=== PATIENT | female | born 1960 | race Caucasian/White ===

== ENCOUNTER 2019-03-20 08:00 | Inpatient (IN) | payer MEDICARE, MEDICAID ==
[~2019-03-20] VITALS: Ht 162.6 cm; Wt 109.1 kg
[~2019-03-20 08:00] MED LIST: ALBU8HFA IH; CLON-570 PO; DIVA500T52 PO; LISI-662 PO; OMEP20 PO; RISP3 PO; TIOT185 IH; [UNRECOGNIZED DRUG - CODE] TP
[2019-03-20] MEDS ORDERED: QUEtiapine FUMARATE 100 MG TABLET PO PRN (09:15)
[2019-03-20 09:25] VITALS: BP 150/100
[2019-03-20] MEDS ORDERED: PARO10TA89 PO (10:26)
[2019-03-20] MEDS ORDERED: METO50 PO ×2 (10:28→11:50)
[2019-03-20] MEDS ORDERED: LISI-662 PO (10:28)
[2019-03-20] MEDS: LORazepam 2 MG TABLET PO PRN ×2 (11:00→17:28)
[2019-03-20] MEDS ORDERED: METF-960 PO (11:38)
[2019-03-20] MEDS ORDERED: LORA1TAB3 PO (11:38)
[2019-03-20] MEDS ORDERED: DIVA500T52 PO (11:38)
[2019-03-20] MEDS ORDERED: RISP3 PO (11:38)
[2019-03-20] MEDS ORDERED: FENO160 PO (11:38)
[2019-03-20] MEDS ORDERED: VARE1TAB22 PO (11:38)
[2019-03-20] MEDS ORDERED: LEVO50 PO (11:38)
[2019-03-20] MEDS ORDERED: TUBERCULIN, PURIFIED PROTEIN DERIVATIVE 5 TU/0.1 ML SYRINGE ID ONE (12:15)
[2019-03-20] MEDS ORDERED: HydrOXYzine PAMOATE 50 MG CAPSULE PO PRN (12:15)
[2019-03-20] MEDS ORDERED: PROMETHAZINE HCL 25 MG TABLET PO PRN (12:15)
[2019-03-20] MEDS ORDERED: MAGNESIUM HYDROXIDE SUSPENSION 30 ML UDCUP PO PRN (12:15)
[2019-03-20] MEDS ORDERED: MAG HYDROX/AL HYDROX/SIMETH ES 30 ML SUSPENSION UDCUP PO PRN (12:15)
[2019-03-20] MEDS ORDERED: LOPERAMIDE HCL 2 MG CAPSULE PO PRN (12:15)
[2019-03-20] MEDS ORDERED: GLUCAGON,HUMAN RECOMBINANT 1 MG VIAL IM PRN (13:15)
[2019-03-20] MEDS ORDERED: CloNIDine HCL 0.1 MG TABLET PO PRN (13:15)
[2019-03-20] MEDS: LISINOPRIL 20 MG TABLET PO SCH (13:27)
[2019-03-20 13:30] VITALS: BP 194/84
[2019-03-20] MEDS: METOPROLOL SUCCINATE 50 MG ER TABLET PO SCH (15:46)
[2019-03-20] MEDS: RisperiDONE 1 MG TABLET PO PRN (16:25)
[2019-03-20] MEDS: THIAMINE HCL 100 MG TABLET PO SCH (16:25)
[2019-03-20] MEDS: NYSTATIN 15 GM POWDER BOTTLE TP SCH (16:25)
[2019-03-20 16:29] LABS: GLUCOMETER DEV NAME(LOC) BV3S.; GLUCOSE,POINT OF CARE 124 MG/DL (70-110)
[2019-03-20 17:24] VITALS: BP 141/61
[2019-03-20] MEDS: RisperiDONE 3 MG TABLET PO SCH (20:30)
[2019-03-20] MEDS: ZOLPIDEM TARTRATE 10 MG TABLET PO PRN (20:30)
[2019-03-20] MEDS ORDERED: DIVALPROEX SODIUM 500 MG ER TABLET PO SCH (21:00)
[2019-03-20] MEDS: INSULIN LISPRO 100 UNITS/ML SQ PRN (21:00)
[2019-03-21 01:24] VITALS: BP 140/98
[2019-03-21] MEDS: LORazepam 2 MG TABLET PO PRN ×3 (02:01→16:32)
[2019-03-21] MEDS: LEVOTHYROXINE SODIUM 50 MCG TABLET PO SCH (06:13)
[2019-03-21 06:14] LABS: GLUCOMETER DEV NAME(LOC) BV3S.; GLUCOSE,POINT OF CARE 157 MG/DL (70-110)
[2019-03-21 08:03] VITALS: BP 155/88
[2019-03-21] MEDS: METOPROLOL SUCCINATE 50 MG ER TABLET PO SCH (08:10)
[2019-03-21] MEDS: FENOFIBRATE 160 MG TABLET PO SCH (08:10)
[2019-03-21] MEDS: MULTIVITAMINS WITH MINERALS, THERAPEUTIC TABLET PO SCH (08:10)
[2019-03-21] MEDS: FOLIC ACID 1 MG TABLET PO SCH (08:10)
[2019-03-21] MEDS: LISINOPRIL 20 MG TABLET PO SCH (08:11)
[2019-03-21] MEDS: PARoxetine HCL 20 MG TABLET PO SCH (08:11)
[2019-03-21] MEDS: THIAMINE HCL 100 MG TABLET PO SCH ×2 (08:11→16:33)
[2019-03-21] MEDS: NYSTATIN 15 GM POWDER BOTTLE TP SCH ×2 (08:16→16:31)
[2019-03-21 08:35] LABS: HEMOGLOBIN A1C 7.6 % (4.5-6.2)
[2019-03-21 08:39] LABS: BASOPHILS % (AUTO) 0.7 % (0.0-2.0); EOSINOPHILS % (AUTO) 2.7 % (1.0-6.0); HEMATOCRIT 34.3 % (36-46); HEMOGLOBIN 11.9 g/dL (12.0-16.0); LYMPHOCYTES # (AUTO) 2.4 K/uL (1.0-4.8); MEAN CORPUSCULAR HEMOGLOBIN 30.5 pg (26.0-34.0); MEAN CORPUSCULAR HGB CONC 34.6 G/dL (31.0-37.0); MEAN CORPUSCULAR VOLUME 88 fL (80-100); MONOCYTES % (AUTO) 14.7 % (2.0-9.0); NEUTROPHILS % (AUTO) 44.9 % (40.0-70.0); PLATELET COUNT (AUTO) 276 K/uL (150-450); RED BLOOD CELL COUNT(AUTO) 3.89 MIL/uL (4.00-5.20); RED CELL DISTRIBUTION WIDTH 14.3 % (11.5-14.5)
[2019-03-21 08:40] LABS: ALANINE AMINOTRANSFERASE 25 U/L (12-78); ALBUMIN 3.2 g/dL (3.4-5.0); ALKALINE PHOSPHATASE 34 U/L (46-116); ANION GAP 7 mmol/L (8-16); ASPARTATE AMINOTRANSFERASE 18 U/L (15-37); BILIRUBIN,TOTAL 0.2 mg/dL (0.1-1.0); CARBON DIOXIDE 28 mmol/L (22-29); CHLORIDE 102 mmol/L (98-107); CHOLESTEROL 116 mg/dL (131-200); CREATININE 0.51 mg/dL (0.60-1.30); FREE T4 (FREE THYROXINE) 1.22 ng/dL (0.76-1.46); GLOMERULAR FILTR. RATE CALC > 60 mL/min (>60); GLUCOSE,RANDOM 149 mg/dL (70-110); HDL CHOLESTEROL 29 mg/dL (40-60); LDL CHOL (CALC.) 64 mg/dL (0-130); POTASSIUM 4.6 mmol/L (3.5-5.1); SODIUM SERUM 137 mmol/L (136-145); THYROID STIMULATING HORMONE 5.31 uIU/mL (0.36-3.74); TOTAL PROTEIN, SERUM 6.5 g/dL (6.4-8.2); TRIGLYCERIDES 117 mg/dL (15-150); UREA NITROGEN, BLOOD 13 mg/dL (7-18)
[2019-03-21 09:03] LABS: APPEARANCE,URINE TURBID (CLEAR); BILIRUBIN,URINE NEGATIVE (NEGATIVE); GLUCOSE, URINE (UA) 250 mg/dL (NEGATIVE); KETONES,URINE NEGATIVE (NEGATIVE); LEUKOCYTE ESTERASE ,URINE TRACE (NEGATIVE); NITRATE,URINE NEGATIVE (NEGATIVE); OCCULT BLOOD,URINE NEGATIVE (NEGATIVE); PH,URINE 6.5 (5.0-8.0); PROTEIN,URINE NEGATIVE (NEGATIVE)
[2019-03-21 09:07] LABS: AMPHET/METH SCREEN,URINE NEGATIVE (NEGATIVE); BARBITURATE SCREEN, URINE NEGATIVE (NEGATIVE); BENZODIAZEPINES SCREEN,URINE NEGATIVE (NEGATIVE); CANNABINOID SCREEN,URINE NEGATIVE (NEGATIVE); COCAINE SCREEN,URINE NEGATIVE (NEGATIVE); METHADONE SCREEN, URINE NEGATIVE (NEGATIVE); OPIATE SCREEN,URINE NEGATIVE (NEGATIVE)
[2019-03-21 09:09] LABS: PHENCYCLIDINE SCREEN,URINE NEGATIVE (NEGATIVE)
[2019-03-21] MEDS: AmLODIPine BESYLATE 2.5 MG TABLET PO SCH (09:29)
[2019-03-21 09:37] LABS: AMORPHOUS SEDIMENT,UR Many /LPF (None Seen); BACTERIA,URINE None Seen /HPF (None Seen); RBC,URINE None Seen /HPF (0-2); SQUAMOUS EPITHELIAL CELL,UR Moderate /LPF (None Seen); WBC,URINE 0-2 /HPF (0-5)
[2019-03-21 11:09] LABS: GLUCOMETER DEV NAME(LOC) BV3S.; GLUCOSE,POINT OF CARE 141 MG/DL (70-110)
[2019-03-21 16:08] VITALS: BP 163/106
[2019-03-21 16:25] LABS: GLUCOMETER DEV NAME(LOC) BV3S.; GLUCOSE,POINT OF CARE 142 MG/DL (70-110)
[2019-03-21] MEDS: RisperiDONE 1 MG TABLET PO PRN (16:32)
[2019-03-21] MEDS: MetFORMIN HCL 500 MG TABLET PO SCH (16:33)
[2019-03-21] MEDS: INSULIN LISPRO 100 UNITS/ML SQ PRN (17:00)
[2019-03-21 17:42] VITALS: BP 137/83
[2019-03-21 20:30] LABS: GLUCOMETER DEV NAME(LOC) BV3S.; GLUCOSE,POINT OF CARE 136 MG/DL (70-110)
[2019-03-21] MEDS: ZOLPIDEM TARTRATE 10 MG TABLET PO PRN (20:32)
[2019-03-21] MEDS: RisperiDONE 3 MG TABLET PO SCH (20:32)
[2019-03-22 00:15] VITALS: BP 142/82
[2019-03-22] MEDS: LORazepam 2 MG TABLET PO PRN ×2 (03:06→16:35)
[2019-03-22] MEDS: ACETAMINOPHEN 325 MG TABLET PO PRN (05:54)
[2019-03-22] MEDS: LEVOTHYROXINE SODIUM 50 MCG TABLET PO SCH (06:35)
[2019-03-22 06:39] LABS: GLUCOMETER DEV NAME(LOC) BV3S.; GLUCOSE,POINT OF CARE 218 MG/DL (70-110)
[2019-03-22] MEDS: MetFORMIN HCL 500 MG TABLET PO SCH ×2 (06:46→16:35)
[2019-03-22 08:16] VITALS: BP 134/83
[2019-03-22] MEDS: MULTIVITAMINS WITH MINERALS, THERAPEUTIC TABLET PO SCH (08:33)
[2019-03-22] MEDS: FENOFIBRATE 160 MG TABLET PO SCH (08:33)
[2019-03-22] MEDS: METOPROLOL SUCCINATE 50 MG ER TABLET PO SCH (08:33)
[2019-03-22] MEDS: LISINOPRIL 20 MG TABLET PO SCH (08:34)
[2019-03-22] MEDS: PARoxetine HCL 20 MG TABLET PO SCH (08:34)
[2019-03-22] MEDS: THIAMINE HCL 100 MG TABLET PO SCH ×2 (08:34→16:35)
[2019-03-22] MEDS: AmLODIPine BESYLATE 2.5 MG TABLET PO SCH (08:34)
[2019-03-22] MEDS: FOLIC ACID 1 MG TABLET PO SCH (08:34)
[2019-03-22] MEDS: NYSTATIN 15 GM POWDER BOTTLE TP SCH ×3 (09:10→17:00)
[2019-03-22 11:04] LABS: GLUCOMETER DEV NAME(LOC) BV3S.; GLUCOSE,POINT OF CARE 112 MG/DL (70-110)
[2019-03-22] MEDS: GuaiFENesin/D-METHORPHAN [SUGAR-FREE] 200-20MG/10 ML SYRUP UDCUP PO PRN ×2 (13:15→20:28)
[2019-03-22 16:12] VITALS: BP 136/76
[2019-03-22 16:29] LABS: GLUCOMETER DEV NAME(LOC) BV3S.; GLUCOSE,POINT OF CARE 162 MG/DL (70-110)
[2019-03-22] MEDS: RisperiDONE 1 MG TABLET PO PRN (16:35)
[2019-03-22] MEDS: NITROFURANTOIN/NITROFURAN MAC 100 MG CAPSULE [MACROBID] PO SCH (16:35)
[2019-03-22] MEDS: INSULIN LISPRO 100 UNITS/ML SQ PRN ×2 (17:00→21:00)
[2019-03-22 20:24] LABS: GLUCOMETER DEV NAME(LOC) BV3S.; GLUCOSE,POINT OF CARE 186 MG/DL (70-110)
[2019-03-22] MEDS: RisperiDONE 3 MG TABLET PO SCH (20:29)
[2019-03-22] MEDS: ZOLPIDEM TARTRATE 10 MG TABLET PO PRN (20:29)
[2019-03-23 00:41] VITALS: BP 145/89
[2019-03-23] MEDS: LORazepam 2 MG TABLET PO PRN ×2 (00:41→20:20)
[2019-03-23] MEDS: MetFORMIN HCL 500 MG TABLET PO SCH ×2 (06:44→17:22)
[2019-03-23] MEDS: LEVOTHYROXINE SODIUM 50 MCG TABLET PO SCH (06:44)
[2019-03-23 06:54] LABS: GLUCOMETER DEV NAME(LOC) BV3S.; GLUCOSE,POINT OF CARE 149 MG/DL (70-110)
[2019-03-23] MEDS: GuaiFENesin/D-METHORPHAN [SUGAR-FREE] 200-20MG/10 ML SYRUP UDCUP PO PRN ×2 (07:25→17:30)
[2019-03-23 08:06] VITALS: BP 130/77
[2019-03-23] MEDS: PARoxetine HCL 20 MG TABLET PO SCH (08:35)
[2019-03-23] MEDS: NITROFURANTOIN/NITROFURAN MAC 100 MG CAPSULE [MACROBID] PO SCH ×2 (08:35→17:23)
[2019-03-23] MEDS: FENOFIBRATE 160 MG TABLET PO SCH (08:36)
[2019-03-23] MEDS: METOPROLOL SUCCINATE 50 MG ER TABLET PO SCH (08:36)
[2019-03-23] MEDS: LISINOPRIL 20 MG TABLET PO SCH (08:36)
[2019-03-23] MEDS: AmLODIPine BESYLATE 2.5 MG TABLET PO SCH (08:36)
[2019-03-23] MEDS: FOLIC ACID 1 MG TABLET PO SCH (08:36)
[2019-03-23] MEDS: MULTIVITAMINS WITH MINERALS, THERAPEUTIC TABLET PO SCH (08:36)
[2019-03-23] MEDS: THIAMINE HCL 100 MG TABLET PO SCH ×2 (08:36→17:23)
[2019-03-23] MEDS: NYSTATIN 15 GM POWDER BOTTLE TP SCH ×2 (08:37→17:23)
[2019-03-23] MEDS: ACETAMINOPHEN 325 MG TABLET PO PRN (08:45)
[2019-03-23 11:55] LABS: GLUCOMETER DEV NAME(LOC) BV3S.; GLUCOSE,POINT OF CARE 96 MG/DL (70-110)
[2019-03-23 16:01] VITALS: BP 127/75
[2019-03-23 17:29] LABS: GLUCOMETER DEV NAME(LOC) BV3S.; GLUCOSE,POINT OF CARE 203 MG/DL (70-110)
[2019-03-23] MEDS: RisperiDONE 3 MG TABLET PO SCH (20:20)
[2019-03-23 20:39] LABS: GLUCOMETER DEV NAME(LOC) BV3S.; GLUCOSE,POINT OF CARE 166 MG/DL (70-110)
[2019-03-24 00:28] VITALS: BP 124/70
[2019-03-24] MEDS: GuaiFENesin/D-METHORPHAN [SUGAR-FREE] 200-20MG/10 ML SYRUP UDCUP PO PRN ×4 (01:26→18:40)
[2019-03-24] MEDS: LEVOTHYROXINE SODIUM 50 MCG TABLET PO SCH (06:24)
[2019-03-24 06:29] LABS: GLUCOMETER DEV NAME(LOC) BV3S.; GLUCOSE,POINT OF CARE 137 MG/DL (70-110)
[2019-03-24] MEDS: MetFORMIN HCL 500 MG TABLET PO SCH ×2 (06:38→16:11)
[2019-03-24 08:04] VITALS: BP 137/70
[2019-03-24] MEDS: MULTIVITAMINS WITH MINERALS, THERAPEUTIC TABLET PO SCH (08:28)
[2019-03-24] MEDS: FOLIC ACID 1 MG TABLET PO SCH (08:28)
[2019-03-24] MEDS: PARoxetine HCL 20 MG TABLET PO SCH (08:28)
[2019-03-24] MEDS: THIAMINE HCL 100 MG TABLET PO SCH ×2 (08:28→16:11)
[2019-03-24] MEDS: NITROFURANTOIN/NITROFURAN MAC 100 MG CAPSULE [MACROBID] PO SCH ×2 (08:29→16:11)
[2019-03-24] MEDS: LISINOPRIL 20 MG TABLET PO SCH (08:29)
[2019-03-24] MEDS: FENOFIBRATE 160 MG TABLET PO SCH (08:29)
[2019-03-24] MEDS: AmLODIPine BESYLATE 2.5 MG TABLET PO SCH (08:29)
[2019-03-24] MEDS: METOPROLOL SUCCINATE 50 MG ER TABLET PO SCH (08:29)
[2019-03-24] MEDS: NYSTATIN 15 GM POWDER BOTTLE TP SCH ×3 (08:32→16:11)
[2019-03-24 12:16] LABS: GLUCOMETER DEV NAME(LOC) BV3S.; GLUCOSE,POINT OF CARE 93 MG/DL (70-110)
[2019-03-24] MEDS ORDERED: BACITRACIN 28.4 GM OINTMENT TP PRN (12:45)
[2019-03-24 16:14] VITALS: BP 117/68
[2019-03-24 16:20] LABS: GLUCOMETER DEV NAME(LOC) BV3S.; GLUCOSE,POINT OF CARE 271 MG/DL (70-110)
[2019-03-24] MEDS: RisperiDONE 3 MG TABLET PO SCH (20:04)
[2019-03-24 20:09] LABS: GLUCOMETER DEV NAME(LOC) BV3S.; GLUCOSE,POINT OF CARE 119 MG/DL (70-110)
[2019-03-24] MEDS: LORazepam 2 MG TABLET PO PRN (20:13)
[2019-03-25 02:30] VITALS: BP 140/83
[2019-03-25] MEDS: GuaiFENesin/D-METHORPHAN [SUGAR-FREE] 200-20MG/10 ML SYRUP UDCUP PO PRN ×4 (02:34→20:49)
[2019-03-25] MEDS: LEVOTHYROXINE SODIUM 50 MCG TABLET PO SCH (06:12)
[2019-03-25 06:19] LABS: GLUCOMETER DEV NAME(LOC) BV3S.; GLUCOSE,POINT OF CARE 114 MG/DL (70-110)
[2019-03-25] MEDS: MetFORMIN HCL 500 MG TABLET PO SCH ×2 (06:38→16:23)
[2019-03-25] MEDS: IBUPROFEN 800 MG TABLET PO PRN ×2 (06:45→20:08)
[2019-03-25 08:14] VITALS: BP 136/55
[2019-03-25] MEDS: FENOFIBRATE 160 MG TABLET PO SCH (08:24)
[2019-03-25] MEDS: LISINOPRIL 20 MG TABLET PO SCH (08:24)
[2019-03-25] MEDS: PARoxetine HCL 20 MG TABLET PO SCH (08:24)
[2019-03-25] MEDS: METOPROLOL SUCCINATE 50 MG ER TABLET PO SCH (08:24)
[2019-03-25] MEDS: NITROFURANTOIN/NITROFURAN MAC 100 MG CAPSULE [MACROBID] PO SCH ×2 (08:24→16:23)
[2019-03-25] MEDS: THIAMINE HCL 100 MG TABLET PO SCH ×2 (08:24→16:23)
[2019-03-25] MEDS: MULTIVITAMINS WITH MINERALS, THERAPEUTIC TABLET PO SCH (08:24)
[2019-03-25] MEDS: AmLODIPine BESYLATE 2.5 MG TABLET PO SCH (08:24)
[2019-03-25] MEDS: FOLIC ACID 1 MG TABLET PO SCH (08:27)
[2019-03-25] MEDS: NYSTATIN 15 GM POWDER BOTTLE TP SCH ×2 (08:27→16:29)
[2019-03-25 11:09] LABS: GLUCOMETER DEV NAME(LOC) BV3S.; GLUCOSE,POINT OF CARE 136 MG/DL (70-110)
[2019-03-25 16:10] VITALS: BP 110/62
[2019-03-25 16:34] LABS: GLUCOMETER DEV NAME(LOC) BV3S.; GLUCOSE,POINT OF CARE 130 MG/DL (70-110)
[2019-03-25 20:38] LABS: GLUCOMETER DEV NAME(LOC) BV3S.; GLUCOSE,POINT OF CARE 230 MG/DL (70-110)
[2019-03-25] MEDS: RisperiDONE 3 MG TABLET PO SCH (20:45)
[2019-03-26] MEDS: GuaiFENesin/D-METHORPHAN [SUGAR-FREE] 200-20MG/10 ML SYRUP UDCUP PO PRN (03:02)
[2019-03-26 03:18] VITALS: BP 124/66
[2019-03-26 06:21] LABS: GLUCOMETER DEV NAME(LOC) BV3S.; GLUCOSE,POINT OF CARE 125 MG/DL (70-110)
[2019-03-26] MEDS: LEVOTHYROXINE SODIUM 50 MCG TABLET PO SCH (06:31)
[2019-03-26] MEDS: MetFORMIN HCL 500 MG TABLET PO SCH ×2 (06:31→16:30)
[2019-03-26 08:08] VITALS: BP 157/80
[2019-03-26] MEDS: LISINOPRIL 20 MG TABLET PO SCH (08:19)
[2019-03-26] MEDS: AmLODIPine BESYLATE 2.5 MG TABLET PO SCH (08:19)
[2019-03-26] MEDS: FENOFIBRATE 160 MG TABLET PO SCH (08:19)
[2019-03-26] MEDS: MULTIVITAMINS WITH MINERALS, THERAPEUTIC TABLET PO SCH (08:19)
[2019-03-26] MEDS: THIAMINE HCL 100 MG TABLET PO SCH ×2 (08:19→16:29)
[2019-03-26] MEDS: FOLIC ACID 1 MG TABLET PO SCH (08:19)
[2019-03-26] MEDS: NITROFURANTOIN/NITROFURAN MAC 100 MG CAPSULE [MACROBID] PO SCH ×2 (08:20→16:30)
[2019-03-26] MEDS: NYSTATIN 15 GM POWDER BOTTLE TP SCH ×2 (08:20→16:29)
[2019-03-26] MEDS: PARoxetine HCL 20 MG TABLET PO SCH (08:20)
[2019-03-26] MEDS: METOPROLOL SUCCINATE 50 MG ER TABLET PO SCH (08:21)
[2019-03-26 09:30] VITALS: BP 140/76
[2019-03-26 12:09] LABS: GLUCOMETER DEV NAME(LOC) BV3S.; GLUCOSE,POINT OF CARE 109 MG/DL (70-110)
[2019-03-26] MEDS ORDERED: HYDROCORTISONE 2.5% 30 GM OINTMENT TP PRN (14:00)
[2019-03-26 16:10] VITALS: BP 153/73
[2019-03-26 16:24] LABS: GLUCOMETER DEV NAME(LOC) BV3S.; GLUCOSE,POINT OF CARE 144 MG/DL (70-110)
[2019-03-26] MEDS: LORazepam 2 MG TABLET PO PRN (16:30)
[2019-03-26 20:24] LABS: GLUCOMETER DEV NAME(LOC) BV3S.; GLUCOSE,POINT OF CARE 176 MG/DL (70-110)
[2019-03-26] MEDS: RisperiDONE 3 MG TABLET PO SCH (20:28)
[2019-03-27 00:21] VITALS: BP 136/70
[2019-03-27] MEDS: GuaiFENesin/D-METHORPHAN [SUGAR-FREE] 200-20MG/10 ML SYRUP UDCUP PO PRN (02:27)
[2019-03-27] MEDS: IBUPROFEN 800 MG TABLET PO PRN (05:18)
[2019-03-27 05:25] VITALS: BP 134/83
[2019-03-27] MEDS: LEVOTHYROXINE SODIUM 50 MCG TABLET PO SCH (06:03)
[2019-03-27 06:19] LABS: GLUCOMETER DEV NAME(LOC) BV3S.; GLUCOSE,POINT OF CARE 149 MG/DL (70-110)
[2019-03-27] MEDS: MetFORMIN HCL 500 MG TABLET PO SCH ×2 (06:42→16:29)
[2019-03-27] MEDS: METOPROLOL SUCCINATE 50 MG ER TABLET PO SCH (08:00)
[2019-03-27] MEDS: AmLODIPine BESYLATE 2.5 MG TABLET PO SCH (08:01)
[2019-03-27] MEDS: PARoxetine HCL 20 MG TABLET PO SCH (08:01)
[2019-03-27] MEDS: MULTIVITAMINS WITH MINERALS, THERAPEUTIC TABLET PO SCH (08:01)
[2019-03-27] MEDS: THIAMINE HCL 100 MG TABLET PO SCH ×2 (08:01→16:29)
[2019-03-27] MEDS: FOLIC ACID 1 MG TABLET PO SCH (08:01)
[2019-03-27] MEDS: FENOFIBRATE 160 MG TABLET PO SCH (08:01)
[2019-03-27] MEDS: NITROFURANTOIN/NITROFURAN MAC 100 MG CAPSULE [MACROBID] PO SCH (08:01)
[2019-03-27] MEDS: LISINOPRIL 20 MG TABLET PO SCH (08:01)
[2019-03-27] MEDS: NYSTATIN 15 GM POWDER BOTTLE TP SCH ×2 (08:02→16:29)
[2019-03-27 08:03] VITALS: BP 142/80
[2019-03-27 11:40] LABS: GLUCOMETER DEV NAME(LOC) BV3S.; GLUCOSE,POINT OF CARE 95 MG/DL (70-110)
[2019-03-27] MEDS ORDERED: RISP3 PO (12:41)
[2019-03-27] MEDS ORDERED: PARO-37 PO (12:41)
[2019-03-27] MEDS ORDERED: LISI-662 PO (14:01)
[2019-03-27] MEDS ORDERED: AMLO2.5T4 PO (14:01)
[2019-03-27] MEDS ORDERED: FOLI1 PO (14:01)
[2019-03-27] MEDS ORDERED: FENO160 PO (14:01)
[2019-03-27] MEDS ORDERED: METO-558 PO (14:01)
[2019-03-27] MEDS ORDERED: MULT-1239 PO (14:01)
[2019-03-27] MEDS ORDERED: THIA1002I IM (14:01)
[2019-03-27] MEDS ORDERED: PARO20TA24 PO (14:01)
== END 2019-03-27 16:23 | disposition home or self-care (01) | DRG 885 ==
LOC: B3A 08:00
PROVIDERS: ADMIT Psychiatry & Neurology Psychiatry; ATTEND Psychiatry & Neurology Psychiatry
DX: F25.0 Schizoaffective disorder, bipolar type (principal); N39.0 Urinary tract infection, site not specified; Z68.41 Body mass index [BMI] 40.0-44.9, adult; F31.9 Bipolar disorder, unspecified; B37.2 Candidiasis of skin and nail; E03.9 Hypothyroidism, unspecified; E11.9 Type 2 diabetes mellitus without complications; E78.5 Hyperlipidemia, unspecified; D64.9 Anemia, unspecified; F12.90 Cannabis use, unspecified, uncomplicated; I10 Essential (primary) hypertension; J44.9 Chronic obstructive pulmonary disease, unspecified; L30.9 Dermatitis, unspecified; Z59.0 Homelessness; Z81.8 Family history of other mental and behavioral disorders; Z87.440 Personal history of urinary (tract) infections; Z91.14 Patient's other noncompliance with medication regimen; Z91.19 Patient's noncompliance with other medical treatment and regimen; Z91.5 Personal history of self-harm; Z88.0 Allergy status to penicillin; Z88.8 Allergy status to other drugs, medicaments and biological substances
CPT/HCPCS: 80307; 82248; 83036; 84439; 84443; 86592